=== PATIENT | male | born 1990 | race Caucasian/White ===

== ENCOUNTER 2021-01-04 12:33 | Emergency (ER) | payer OTHER ==
[~2021-01-04] VITALS: Ht 188 cm; Wt 95.3 kg
--- NOTE | 2021-01-04 12:45 | NUR ---
PATIENT BIB HER FIREND FOR C/O HEADACHE AND NAUSEA X 6 DAYS. RATES PAIN 9/10. RESPIRATION REGULAR AND UNLABORED. ATTACHED TO THE MONITOR. BLANKET PROVIDED FOR COMFORT. WILL CONTINUE TO MONITOR THE PATIENT.
[2021-01-04] MEDS ORDERED: IV NS 0.9% 1,000 ML BAG IV ONE (13:30)
[2021-01-04] MEDS ORDERED: METOCLOPRAMIDE HCL 10 MG/2 ML VIAL IV ONE (13:30)
[2021-01-04] MEDS ORDERED: diphenhydrAMINE HCL 50 MG/ML VIAL IV ONE (13:30)
[2021-01-04] MEDS ORDERED: KETOROLAC TROMETHAMINE INJ 30 MG/ML VIAL IV ONE (13:30)
[2021-01-04] MEDS ORDERED: METOCLOPRAMIDE HCL 10 MG/2 ML VIAL ONE (13:32)
[2021-01-04] MEDS ORDERED: diphenhydrAMINE HCL 50 MG/ML VIAL ONE (13:32)
[2021-01-04] MEDS ORDERED: KETOROLAC TROMETHAMINE 15 MG/ML VIAL ONE (13:32)
--- NOTE | 2021-01-04 14:32 | NUR ---
The patient alert and oriented x4. Patient discharged to home in stable condition. Written and verbal after care instructions given. Patient verbalizes understanding of instruction.
[2021-01-04 14:34] VITALS: BP 126/75
== END 2021-01-04 14:35 | disposition home or self-care (01) ==
LOC: ER 12:38
DX: R51.9 Headache, unspecified (principal); E86.0 Dehydration
CPT/HCPCS: 96361; 96374; 96375; 99284; J1200; J1885; J2765; J7030